=== PATIENT | female | born 1970 | race Caucasian/White ===

== ENCOUNTER → 2018-02-15 10:20 | Outpatient (CLI) | payer OTHER, SELFPAY ==
--- NOTE | 2018-02-15 10:22 | DI.RAD.S_ITS ---
PROCEDURE: XR ANKLE RT MIN 3V INDICATIONS: rolled ankle, outer pain and swelling TECHNIQUE: 3 views of the ankle were acquired. COMPARISON: None. FINDINGS: Bones: No fractures or dislocations. Ankle mortise is normally aligned. No suspicious bony lesions. Soft tissues: No tibiotalar joint effusion. Achilles tendon appears normal. IMPRESSION: No ankle fracture or dislocation. Dictated by: Jose Alberto Garcia M.D. on 02/15/2018 at 10:49 Approved by: Jose Alberto Garcia M.D. on 02/15/2018 at 11:09
== END ==
PROVIDERS: Visit Provider Physician Assistant
DX: S99.911A Unspecified injury of right ankle, initial encounter (principal)
CPT/HCPCS: 73610